=== PATIENT | female | born 1970 | race African-American/Black ===

== ENCOUNTER 2017-01-11 12:37 | Emergency (ER) | payer MEDICAID ==
[~2017-01-11] VITALS: Ht 167.6 cm; Wt 58.0 kg
[2017-01-11 16:00] VITALS: BP 114/72
== END 2017-01-11 17:43 | disposition left against medical advice (07) ==
LOC: ER 16:01
DX: J02.9 Acute pharyngitis, unspecified (principal); Z53.21 Procedure and treatment not carried out due to patient leaving prior to being seen by health care provider